=== PATIENT | female | born 1955 | race Caucasian/White ===

== ENCOUNTER 2021-12-04 07:14 | Inpatient (IN) | payer MEDICARE ==
[~2021-12-04] VITALS: Ht 165.1 cm; Wt 125.2 kg
[2021-12-04] MEDS ORDERED: Morphine 2mg Syringe 2 MG/ML SYR IV STA (07:22)
[2021-12-04] MEDS ORDERED: ONDANSETRON HCL INJ 2MG/ML 2ML 2 MG/ML VIAL IV STA (07:22)
[2021-12-04] MEDS ORDERED: SODIUM CHLORIDE 0.9% 1000ML 1,000 ML IV STA (07:22)
[2021-12-04] MEDS ORDERED: KETOROLAC TROMETHAMINE 30 MG/ML VIAL IV STA (07:22)
[2021-12-04 07:34] LABS: BASOPHILS % 0.2 % (0.0-1.0); EOSINOPHILS # (AUTO) 0.1 (0.0-0.4); HEMOGLOBIN 14.8 g/dL (12.0-16.0); LYMPHOCYTES # (AUTO) 1.5 (1.0-3.2); LYMPHOCYTES % 16.7 % (18.0-39.1); MEAN CORPUSCULAR HEMOGLOBIN 28.6 pg (28-32); MEAN CORPUSCULAR HGB CONC 32.9 g/dL (31-35); MONOCYTES # (AUTO) 0.4 (0.2-0.8); MONOCYTES % 4.9 % (4.4-11.3); NEUTROPHILS # (AUTO) 6.8 (2.1-6.9); NEUTROPHILS % 76.9 % (38.7-80.0); PLATELET COUNT 133 x10e3/uL (140-360); RED BLOOD COUNT 5.17 x10e6/uL (3.6-5.1); RED CELL DISTRIBUTION WIDTH 14.1 % (11.7-14.4)
[2021-12-04 07:43] LABS: INR 1.03; PROTHROMBIN TIME 14.4 seconds (11.9-14.5)
[2021-12-04 07:54] LABS: ANION GAP 19.2 mmol/L (8-16); CALCIUM 9.9 mg/dL (8.4-10.2); CREATININE, SERUM 0.85 mg/dL (0.57-1.11); MAGNESIUM 1.6 MG/DL (1.3-2.1); POTASSIUM 4.2 mmol/L (3.5-5.1)
[2021-12-04 08:00] LABS: CREATINE KINASE MB 0.5 ng/mL (0-5.0)
[2021-12-04 08:05] LABS: CLARITY,URINE TURBID (CLEAR); COLOR,URINE YELLOW (YELLOW); KETONES,URINE 2+ (NEGATIVE); LEUKOCYTE ESTERASE ,URINE SMALL (NEGATIVE); NITRITE,URINE POSITIVE (NEGATIVE); PROTEIN,URINE DIPSTICK 2+ (NEGATIVE); URINE UROBILINOGEN 0.2 mg/dL (0.2 - 1)
[2021-12-04 08:07] LABS: BACTERIA,URINE MODERATE /HPF; EPITHELIAL CELLS,URINE FEW /LPF; RBC,URINE >50 /HPF (0-5); WBC,URINE (MAN) >50 /HPF (0-5)
[2021-12-04] MEDS ORDERED: CEFTRIAXONE 1 GM in SODIUM CHLORIDE 0.9% 50ML 50 ML IV ONE (08:15)
[2021-12-04] MEDS ORDERED: DIPHENHYDRAMINE HCL INJ 50 MG/ML VIAL IV ONE (08:30)
[2021-12-04] MEDS ORDERED: METOCLOPRAMIDE HCL 10 MG/2ML VIAL IV ONE (08:30)
[2021-12-04] MEDS ORDERED: METOCLOPRAMIDE HCL 10 MG/2ML VIAL IV PRN (09:45)
[2021-12-04] MEDS ORDERED: Morphine 2mg Syringe 2 MG/ML SYR IV PRN (09:45)
[2021-12-04] MEDS ORDERED: ONDANSETRON HCL INJ 2MG/ML 2ML 2 MG/ML VIAL IV PRN (09:45)
[2021-12-04] MEDS ORDERED: DIPHENHYDRAMINE HCL INJ 50 MG/ML VIAL IV PRN (09:45)
[2021-12-04] MEDS: PIPERACILLIN/TAZOBACTAM 3.375 GM in SODIUM CHLORIDE 0.9% 50ML 50 ML IV SCH ×3 (10:29→21:33)
[2021-12-04] MEDS ORDERED: Vancomycin IV 1 GM in SODIUM CHLORIDE 0.9% 250ML 250 ML IV ONE (10:30)
[2021-12-04 11:40] VITALS: BP 136/59
[2021-12-04] MEDS: SODIUM CHLORIDE 0.9% 1000ML 1,000 ML IV SCH ×2 (12:38→19:45)
[2021-12-04] MEDS ORDERED: DEXTROSE 50% SYRINGE 50 ML IV PRN (14:45)
[2021-12-04 16:00] VITALS: BP 132/51
[2021-12-04] MEDS: INSULIN REGULAR, HUMAN 100 UNIT/1 ML SQ SCH ×2 (16:50→20:42)
[2021-12-04] MEDS: FAMOTIDINE 20 MG TAB PO SCH (16:51)
[2021-12-04] MEDS: TAMSULOSIN HCL 0.4 MG CAP PO SCH (16:51)
[2021-12-04 19:16] LABS: CREATINE KINASE MB 0.3 ng/mL (0-5.0)
[2021-12-04 20:00] VITALS: BP 106/39
[2021-12-04 21:00] VITALS: BP 106/39
[2021-12-05] VITALS (8 sets, daily range): BP systolic 106–126; BP diastolic 49–59
[2021-12-05] MEDS: PIPERACILLIN/TAZOBACTAM 3.375 GM in SODIUM CHLORIDE 0.9% 50ML 50 ML IV SCH ×4 (04:20→22:00)
[2021-12-05] MEDS: SODIUM CHLORIDE 0.9% 1000ML 1,000 ML IV SCH ×3 (05:45→22:56)
[2021-12-05] MEDS: FAMOTIDINE 20 MG TAB PO SCH (08:29)
[2021-12-05] MEDS: TAMSULOSIN HCL 0.4 MG CAP PO SCH ×2 (08:29→16:03)
[2021-12-05] MEDS: INSULIN REGULAR, HUMAN 100 UNIT/1 ML SQ SCH ×4 (08:31→21:30)
[2021-12-05 09:12] LABS: BASOPHILS % 0.2 % (0.0-1.0); EOSINOPHILS # (AUTO) 0.1 (0.0-0.4); HEMATOCRIT 38.2 % (34.2-44.1); HEMOGLOBIN 12.6 g/dL (12.0-16.0); LYMPHOCYTES # (AUTO) 1.6 (1.0-3.2); MEAN CORPUSCULAR HEMOGLOBIN 28.6 pg (28-32); MEAN CORPUSCULAR VOLUME 86.6 fL (81-99); MONOCYTES # (AUTO) 0.6 (0.2-0.8); MONOCYTES % 5.8 % (4.4-11.3); NEUTROPHILS # (AUTO) 7.4 (2.1-6.9); NEUTROPHILS % 76.6 % (38.7-80.0); PLATELET COUNT 100 x10e3/uL (140-360); RED BLOOD COUNT 4.41 x10e6/uL (3.6-5.1); RED CELL DISTRIBUTION WIDTH 14.6 % (11.7-14.4)
[2021-12-05 09:25] LABS: ALBUMIN 3.1 g/dL (3.5-5.0); ALBUMIN/GLOBULIN RATIO 0.9 (0.8-2.0); ANION GAP 16.9 mmol/L (8-16); CALCIUM 8.8 mg/dL (8.4-10.2); CREATININE, SERUM 0.79 mg/dL (0.57-1.11); POTASSIUM 3.9 mmol/L (3.5-5.1)
[2021-12-05 09:38] LABS: CREATINE KINASE MB 0.5 ng/mL (0-5.0)
[2021-12-05 09:51] LABS: MAGNESIUM 1.6 MG/DL (1.3-2.1); PHOSPHORUS 3.4 MG/DL (2.3-4.7)
[2021-12-05] MEDS: ACETAMINOPHEN 325 MG TAB PO PRN (17:58)
[2021-12-06] VITALS: BP 137/64
[2021-12-06 04:00] VITALS: BP 159/73
[2021-12-06] MEDS: PIPERACILLIN/TAZOBACTAM 3.375 GM in SODIUM CHLORIDE 0.9% 50ML 50 ML IV SCH ×2 (04:00→10:20)
[2021-12-06] MEDS ORDERED: omeprazole PO (05:00)
[2021-12-06 05:25] LABS: BASOPHILS % 0.3 % (0.0-1.0); EOSINOPHILS # (AUTO) 0.2 (0.0-0.4); EOSINOPHILS % 2.7 % (0.0-6.0); HEMATOCRIT 37.5 % (34.2-44.1); HEMOGLOBIN 12.2 g/dL (12.0-16.0); LYMPHOCYTES # (AUTO) 1.3 (1.0-3.2); LYMPHOCYTES % 21.7 % (18.0-39.1); MEAN CORPUSCULAR HEMOGLOBIN 28.6 pg (28-32); MEAN CORPUSCULAR HGB CONC 32.5 g/dL (31-35); MONOCYTES # (AUTO) 0.6 (0.2-0.8); MONOCYTES % 9.5 % (4.4-11.3); NEUTROPHILS # (AUTO) 3.9 (2.1-6.9); NEUTROPHILS % 65.6 % (38.7-80.0); PLATELET COUNT 95 x10e3/uL (140-360); RED BLOOD COUNT 4.26 x10e6/uL (3.6-5.1); RED CELL DISTRIBUTION WIDTH 14.6 % (11.7-14.4)
[2021-12-06 05:43] LABS: ALBUMIN/GLOBULIN RATIO 0.9 (0.8-2.0); ANION GAP 11.7 mmol/L (8-16); CALCIUM 8.3 mg/dL (8.4-10.2); CREATININE, SERUM 0.66 mg/dL (0.57-1.11); POTASSIUM 3.7 mmol/L (3.5-5.1)
[2021-12-06] MEDS: INSULIN REGULAR, HUMAN 100 UNIT/1 ML SQ SCH (07:30)
[2021-12-06 08:00] VITALS: BP 159/73
[2021-12-06 08:32] VITALS: BP 155/62
[2021-12-06] MEDS: FAMOTIDINE 20 MG TAB PO SCH (09:12)
[2021-12-06] MEDS: TAMSULOSIN HCL 0.4 MG CAP PO SCH (09:12)
[2021-12-06] MEDS: ACETAMINOPHEN 325 MG TAB PO PRN (10:21)
[2021-12-06] MEDS ORDERED: ONDANSETRON HCL 4 MG ORAL DISINTEGRATING TAB PO PRN (11:30)
[2021-12-06 12:14] VITALS: BP 154/70
[2021-12-06] MEDS ORDERED: METOCLOPRAMIDE HCL 10 MG TAB PO PRN (13:00)
== END 2021-12-06 13:10 | disposition home or self-care (01) | DRG 690 ==
LOC: ER 07:29 → ERHOLD 09:48 → MED/SURG2 11:27
PROVIDERS: ADMIT Internal Medicine; ATTEND Internal Medicine
DX: N13.6 Pyonephrosis (principal); Z68.42 Body mass index [BMI] 45.0-49.9, adult; N12 Tubulo-interstitial nephritis, not specified as acute or chronic; R31.29 Other microscopic hematuria; E66.01 Morbid (severe) obesity due to excess calories; R31.9 Hematuria, unspecified; D69.6 Thrombocytopenia, unspecified; N39.46 Mixed incontinence; I25.10 Atherosclerotic heart disease of native coronary artery without angina pectoris; Z95.5 Presence of coronary angioplasty implant and graft; Z20.822 Contact with and (suspected) exposure to COVID-19
CPT/HCPCS: 36415; 71045; 74176; 80053; 81001; 82550; 82553; 82948; 83036; 83690; 83735; 83880; 84100; 84484; 85025; 85610; 85730; 87086; 87186; 93005; 96372; 99284; J0696; J1200; J1817; J1885; J2270; J2405; J2543; J2765; J3370; J7030; J7050; U0002

== ENCOUNTER 2021-12-30 17:36 | Inpatient (IN) | payer MEDICARE ==
[~2021-12-30] VITALS: Ht 165.1 cm; Wt 125.2 kg
[~2021-12-30 17:36] MED LIST: ASPIRIN81 MG PO; BUSPIRONE HCL10 MG PO; FLUOXETINE HCL20 M1 PO; FUROSEMIDE40 MG PO; GABAPENTIN300 MG PO; GLIMEPIRIDE2 MG PO; HYDROXYZINE HCL25 MG PO; INDERAL10 MG PO; LIPITOR10 MG PO; LOSARTAN POTAS100 MG PO; METFORMIN HCL500 MG PO; METOPROLOL SUCC50 MG PO; TRULICITY1.5 MG/0.5 SC; omeprazole PO
[2021-12-30] MEDS ORDERED: ONDANSETRON HCL INJ 2MG/ML 2ML 2 MG/ML VIAL IV STA (17:42)
[2021-12-30] MEDS ORDERED: SODIUM CHLORIDE 0.9% 1000ML 1,000 ML IV ONE (17:45)
[2021-12-30] MEDS ORDERED: DICYCLOMINE HCL 20 MG/2 ML VIAL IM ONE (17:45)
[2021-12-30 18:33] LABS: BASOPHILS % 0.1 % (0.0-1.0); HEMATOCRIT 38.9 % (34.2-44.1); HEMOGLOBIN 13.1 g/dL (12.0-16.0); LYMPHOCYTES # (AUTO) 0.9 (1.0-3.2); LYMPHOCYTES % 9.2 % (18.0-39.1); MEAN CORPUSCULAR HEMOGLOBIN 28.6 pg (28-32); MEAN CORPUSCULAR HGB CONC 33.7 g/dL (31-35); MEAN CORPUSCULAR VOLUME 84.9 fL (81-99); MONOCYTES # (AUTO) 0.9 (0.2-0.8); MONOCYTES % 9.2 % (4.4-11.3); NEUTROPHILS # (AUTO) 7.5 (2.1-6.9); PLATELET COUNT 124 x10e3/uL (140-360); RED BLOOD COUNT 4.58 x10e6/uL (3.6-5.1); RED CELL DISTRIBUTION WIDTH 14.6 % (11.7-14.4)
[2021-12-30 18:53] LABS: ALBUMIN 3.2 g/dL (3.5-5.0); ALBUMIN/GLOBULIN RATIO 0.8 (0.8-2.0); AMYLASE 29 U/L (25-125); ANION GAP 13.8 mmol/L (8-16); CALCIUM 9.2 mg/dL (8.4-10.2); CREATININE, SERUM 1.03 mg/dL (0.57-1.11); LIPASE 13 U/L (8-78); POTASSIUM 3.8 mmol/L (3.5-5.1)
[2021-12-30 19:28] LABS: CREATINE KINASE MB 0.4 ng/mL (0-5.0)
[2021-12-30 20:16] LABS: CLARITY,URINE SL CLOUDY (CLEAR); COLOR,URINE AMBER (YELLOW); KETONES,URINE TRACE (NEGATIVE); LEUKOCYTE ESTERASE ,URINE MODERATE (NEGATIVE); NITRITE,URINE NEGATIVE (NEGATIVE); PROTEIN,URINE DIPSTICK TRACE (NEGATIVE); URINE UROBILINOGEN 0.2 mg/dL (0.2 - 1)
[2021-12-30 20:24] LABS: BACTERIA,URINE MANY /HPF; RBC,URINE 0-5 /HPF (0-5)
[2021-12-30] MEDS: CEFTRIAXONE 1 GM in SODIUM CHLORIDE 0.9% 50ML 50 ML IV SCH (21:25)
[2021-12-30] MEDS ORDERED: ONDANSETRON HCL INJ 2MG/ML 2ML 2 MG/ML VIAL IV PRN (21:30)
[2021-12-30] MEDS ORDERED: Morphine 2mg Syringe 2 MG/ML SYR IV PRN (21:30)
[2021-12-30] MEDS ORDERED: CEFTRIAXONE 1 GM VIAL ONE (21:30)
[2021-12-30] MEDS ORDERED: DEXTROSE 50% SYRINGE 50 ML IV PRN (21:30)
[2021-12-30] MEDS ORDERED: SODIUM CHLORIDE 0.9% 50ML 50 ML ONE (21:30)
[2021-12-30] MEDS: SODIUM CHLORIDE 0.9% 1000ML 1,000 ML IV SCH (22:12)
[2021-12-31] VITALS (17 sets, daily range): BP systolic 97–123; BP diastolic 50–77
[2021-12-31] MEDS ORDERED: ACETAMINOPHEN 1000 MG/100 ML IV STA (01:14)
[2021-12-31 05:50] LABS: BASOPHILS % 0.3 % (0.0-1.0); EOSINOPHILS # (AUTO) 0.1 (0.0-0.4); EOSINOPHILS % 0.8 % (0.0-6.0); HEMATOCRIT 37.6 % (34.2-44.1); HEMOGLOBIN 12.3 g/dL (12.0-16.0); LYMPHOCYTES # (AUTO) 0.5 (1.0-3.2); LYMPHOCYTES % 5.6 % (18.0-39.1); MEAN CORPUSCULAR HEMOGLOBIN 28.5 pg (28-32); MEAN CORPUSCULAR HGB CONC 32.7 g/dL (31-35); MEAN CORPUSCULAR VOLUME 87.2 fL (81-99); MONOCYTES # (AUTO) 0.6 (0.2-0.8); MONOCYTES % 6.9 % (4.4-11.3); NEUTROPHILS # (AUTO) 7.4 (2.1-6.9); NEUTROPHILS % 85.5 % (38.7-80.0); PLATELET COUNT 118 x10e3/uL (140-360); RED BLOOD COUNT 4.31 x10e6/uL (3.6-5.1); RED CELL DISTRIBUTION WIDTH 14.8 % (11.7-14.4)
[2021-12-31 06:20] LABS: ALBUMIN 2.9 g/dL (3.5-5.0); ALBUMIN/GLOBULIN RATIO 0.8 (0.8-2.0); ANION GAP 14.6 mmol/L (8-16); CALCIUM 8.5 mg/dL (8.4-10.2); CREATININE, SERUM 1.49 mg/dL (0.57-1.11); POTASSIUM 3.6 mmol/L (3.5-5.1)
[2021-12-31] MEDS: SODIUM CHLORIDE 0.9% 1000ML 1,000 ML IV SCH ×4 (06:24→23:05)
[2021-12-31] MEDS ORDERED: IOPAMIDOL 300MG/ML 50ML INFUS..BTL IV ONE (06:54)
[2021-12-31] MEDS ORDERED: B&O 60MG R/S 60 MG SUPP PR ONE (06:54)
[2021-12-31] MEDS: INSULIN REGULAR, HUMAN 100 UNIT/1 ML SQ SCH ×4 (07:30→20:11)
[2021-12-31 07:45] LABS: CREATINE KINASE MB 3.1 ng/mL (0-5.0)
[2021-12-31] MEDS: CEFTRIAXONE 1 GM in SODIUM CHLORIDE 0.9% 50ML 50 ML IV SCH (09:00)
[2021-12-31] MEDS ORDERED: SODIUM CHLORIDE 0.9% 1000ML 1,000 ML IV SCH ×2 (09:15→10:45)
[2021-12-31] MEDS ORDERED: HEPARIN SOD (PORCINE) 1000 UNIT/ML 30ML ONE (09:19)
[2021-12-31] MEDS ORDERED: LIDOCAINE HCL 2% LOCAL 20 ML VIAL ONE (09:19)
[2021-12-31] MEDS ORDERED: HEPARIN SOD/SOD CHLORIDE 2,000 ML ONE (09:19)
[2021-12-31] MEDS ORDERED: NITROGLYCERIN/D5W 200 MCG/ML 250 ML ONE (09:20)
[2021-12-31] MEDS ORDERED: IOPAMIDOL 370 MG/ML 200 ML INFUS..BTL INJ ONE ×2 (09:20→10:23)
[2021-12-31] MEDS ORDERED: VERAPAMIL HCL 2.5 MG/ML 2 ML VIAL ONE (09:21)
[2021-12-31] MEDS ORDERED: MIDAZOLAM HCL 2 MG/2 ML VIAL ONE (09:40)
[2021-12-31] MEDS ORDERED: FENTANYL CITRATE/PF 100MCG/2 ML INJ ONE (09:40)
[2021-12-31] MEDS ORDERED: ADENOSINE 3MG/1ML 30ML VIAL ONE (10:19)
[2021-12-31] MEDS ORDERED: SODIUM CHLORIDE 0.9% 50ML 50 ML ONE (10:20)
[2021-12-31 16:21] LABS: CREATINE KINASE MB 3.2 ng/mL (0-5.0)
[2021-12-31] MEDS: ACETAMINOPHEN 325 MG TAB PO PRN ×2 (18:37→19:26)
[2021-12-31] MEDS ORDERED: HYDROXYZINE HCL 25 MG TAB PO PRN (20:45)
[2021-12-31] MEDS ORDERED: HYDRALAZINE HCL 20 MG/ML VIAL IV PRN (22:15)
[2022-01-01] VITALS: BP 110/55
[2022-01-01 04:00] VITALS: BP 121/51
[2022-01-01 04:57] LABS: BASOPHILS % 0.3 % (0.0-1.0); EOSINOPHILS # (AUTO) 0.1 (0.0-0.4); EOSINOPHILS % 0.9 % (0.0-6.0); HEMATOCRIT 36.1 % (34.2-44.1); HEMOGLOBIN 11.8 g/dL (12.0-16.0); LYMPHOCYTES # (AUTO) 0.7 (1.0-3.2); LYMPHOCYTES % 11.2 % (18.0-39.1); MEAN CORPUSCULAR HEMOGLOBIN 28.4 pg (28-32); MEAN CORPUSCULAR HGB CONC 32.7 g/dL (31-35); MEAN CORPUSCULAR VOLUME 86.8 fL (81-99); MONOCYTES # (AUTO) 0.7 (0.2-0.8); MONOCYTES % 10.6 % (4.4-11.3); NEUTROPHILS # (AUTO) 4.9 (2.1-6.9); NEUTROPHILS % 76.5 % (38.7-80.0); PLATELET COUNT 95 x10e3/uL (140-360); RED BLOOD COUNT 4.16 x10e6/uL (3.6-5.1); RED CELL DISTRIBUTION WIDTH 15.1 % (11.7-14.4)
[2022-01-01 05:17] LABS: ALBUMIN 2.6 g/dL (3.5-5.0); ALBUMIN/GLOBULIN RATIO 0.7 (0.8-2.0); ANION GAP 11.5 mmol/L (8-16); CALCIUM 8.4 mg/dL (8.4-10.2); CREATININE, SERUM 0.75 mg/dL (0.57-1.11); POTASSIUM 3.5 mmol/L (3.5-5.1)
[2022-01-01] MEDS: INSULIN REGULAR, HUMAN 100 UNIT/1 ML SQ SCH ×2 (07:30→11:30)
[2022-01-01] MEDS: SODIUM CHLORIDE 0.9% 1000ML 1,000 ML IV SCH (07:33)
[2022-01-01 07:59] VITALS: BP 118/60
[2022-01-01 08:00] VITALS: BP 118/60
[2022-01-01] MEDS ORDERED: METOPROLOL SUCCINATE 50 MG TAB XL PO SCH (09:00)
[2022-01-01] MEDS ORDERED: BUSPIRONE HCL 10 MG TABLET PO SCH (09:00)
[2022-01-01] MEDS ORDERED: GLIMEPIRIDE 2 MG TAB PO SCH (09:00)
[2022-01-01] MEDS ORDERED: FUROSEMIDE 20 MG TAB PO SCH (09:00)
[2022-01-01] MEDS ORDERED: ASPIRIN 81 MG CHEW TAB PO SCH (09:00)
[2022-01-01] MEDS ORDERED: FLUOXETINE HCL 20 MG CAP PO SCH (09:00)
[2022-01-01] MEDS ORDERED: GABAPENTIN 300 MG CAP PO SCH (09:00)
[2022-01-01] MEDS: CEFTRIAXONE 1 GM in SODIUM CHLORIDE 0.9% 50ML 50 ML IV SCH (09:13)
[2022-01-01 12:19] VITALS: BP 125/64
[2022-01-01] MEDS ORDERED: LOSARTAN POTASSIUM 100 MG TAB PO SCH (21:00)
[2022-01-01] MEDS ORDERED: ATORVASTATIN 10 MG TAB PO SCH (21:00)
== END 2022-01-01 13:30 | disposition home or self-care (01) | DRG 872 ==
LOC: ER 17:41 → ERHOLD 21:33 → MED/SURG 12-31 00:16 → OBSVTOIN 12-31 16:35
PROVIDERS: ADMIT Internal Medicine; ATTEND Internal Medicine
PROC: 4A023N7 Measurement of Cardiac Sampling and Pressure, Left Heart, Percutaneous Approach (ICD-10-PCS; principal; 2021-12-31)
PROC: B2111ZZ Fluoroscopy of Multiple Coronary Arteries using Low Osmolar Contrast (ICD-10-PCS; 2021-12-31)
PROC: B2151ZZ Fluoroscopy of Left Heart using Low Osmolar Contrast (ICD-10-PCS; 2021-12-31)
PROC: 4A033BC Measurement of Arterial Pressure, Coronary, Percutaneous Approach (ICD-10-PCS; 2021-12-31)
DX: A41.9 Sepsis, unspecified organism (principal); N13.6 Pyonephrosis; N17.9 Acute kidney failure, unspecified; Z68.42 Body mass index [BMI] 45.0-49.9, adult; I5A Non-ischemic myocardial injury (non-traumatic); R65.20 Severe sepsis without septic shock; I25.10 Atherosclerotic heart disease of native coronary artery without angina pectoris; Z98.84 Bariatric surgery status; Z82.49 Family history of ischemic heart disease and other diseases of the circulatory system; K80.80 Other cholelithiasis without obstruction; E78.5 Hyperlipidemia, unspecified; G25.81 Restless legs syndrome; F32.A Depression, unspecified; F41.9 Anxiety disorder, unspecified; E66.01 Morbid (severe) obesity due to excess calories; Z95.5 Presence of coronary angioplasty implant and graft; R26.81 Unsteadiness on feet; G47.30 Sleep apnea, unspecified; Z83.3 Family history of diabetes mellitus; Z81.1 Family history of alcohol abuse and dependence; M17.0 Bilateral primary osteoarthritis of knee; B96.4 Proteus (mirabilis) (morganii) as the cause of diseases classified elsewhere; E11.22 Type 2 diabetes mellitus with diabetic chronic kidney disease; I12.9 Hypertensive chronic kidney disease with stage 1 through stage 4 chronic kidney disease, or unspecified chronic kidney disease; N18.9 Chronic kidney disease, unspecified; N39.46 Mixed incontinence; D64.9 Anemia, unspecified; Z20.822 Contact with and (suspected) exposure to COVID-19; Z79.82 Long term (current) use of aspirin; Z79.84 Long term (current) use of oral hypoglycemic drugs
CPT/HCPCS: 36415; 71045; 74181; 76705; 80053; 81001; 82150; 82550; 82553; 82948; 83690; 84484; 85025; 87040; 87086; 87186; 93005; 94799; 99284; G0378; J0153; J0500; J0696; J1644; J1817; J2001; J2250; J2405; J3010; J3410; J7030; Q9967; U0002

== ENCOUNTER 2022-01-28 06:50 | Observation (INO) | payer MEDICARE ==
[2022-01-26 12:35] LABS: BASOPHILS % 0.9 % (0.0-1.0); EOSINOPHILS # (AUTO) 0.3 (0.0-0.4); EOSINOPHILS % 6.1 % (0.0-6.0); HEMATOCRIT 39.2 % (34.2-44.1); HEMOGLOBIN 12.5 g/dL (12.0-16.0); LYMPHOCYTES # (AUTO) 1.9 (1.0-3.2); LYMPHOCYTES % 45.4 % (18.0-39.1); MEAN CORPUSCULAR HEMOGLOBIN 28.5 pg (28-32); MEAN CORPUSCULAR HGB CONC 31.9 g/dL (31-35); MEAN CORPUSCULAR VOLUME 89.3 fL (81-99); MONOCYTES # (AUTO) 0.4 (0.2-0.8); MONOCYTES % 8.9 % (4.4-11.3); NEUTROPHILS # (AUTO) 1.6 (2.1-6.9); NEUTROPHILS % 38.5 % (38.7-80.0); PLATELET COUNT 153 x10e3/uL (140-360); RED BLOOD COUNT 4.39 x10e6/uL (3.6-5.1); RED CELL DISTRIBUTION WIDTH 14.7 % (11.7-14.4)
[2022-01-26 12:52] LABS: ANION GAP 14.2 mmol/L (8-16); CALCIUM 9.5 mg/dL (8.4-10.2); CREATININE, SERUM 0.76 mg/dL (0.57-1.11); POTASSIUM 4.2 mmol/L (3.5-5.1)
[~2022-01-28] VITALS: Ht 165.1 cm; Wt 122.0 kg
[~2022-01-28 06:50] MED LIST changes: +OMEPRAZOLE20 MG PO; +OMEPRAZOLE40 MG PO
[2022-01-28] MEDS ORDERED: GENTAMICIN 80MG/NS 100 ML 200 ML IV ONE (07:22)
[2022-01-28] MEDS ORDERED: CEFTRIAXONE 1 GM VIAL ONE (07:22)
[2022-01-28] MEDS ORDERED: INSULIN REGULAR, HUMAN 100 UNIT/1 ML ONE (07:51)
[2022-01-28] MEDS ORDERED: IOHEXOL 300 MG/ML 30ML INFUS..BTL ONE (09:07)
[2022-01-28] MEDS ORDERED: BELLADONNA/OPIUM 30 MG SUPP RC ONE (09:07)
[2022-01-28] MEDS ORDERED: PHENAZOPYRIDINE HCL 100 MG TAB ONE (11:56)
[2022-01-28 12:45] VITALS: BP 153/68
[2022-01-28] MEDS ORDERED: MIDAZOLAM HCL 2 MG/2 ML VIAL ONE (13:16)
[2022-01-28] MEDS ORDERED: FENTANYL CITRATE/PF 100MCG/2 ML INJ ONE (13:16)
[2022-01-28 13:23] VITALS: BP 153/68
[2022-01-28 13:27] VITALS: BP 153/68
[2022-01-28] MEDS ORDERED: ONDANSETRON HCL INJ 2MG/ML 2ML 2 MG/ML VIAL IV PRN (13:45)
[2022-01-28] MEDS ORDERED: DEXTROSE 50% SYRINGE 50 ML IV PRN (13:45)
[2022-01-28] MEDS ORDERED: ACETAMINOPHEN 325 MG TAB PO PRN (13:45)
[2022-01-28] MEDS ORDERED: TYLENOL 3 PO (14:05)
[2022-01-28] MEDS ORDERED: INSULIN REGULAR, HUMAN 100 UNIT/1 ML SQ ONE (15:00)
[2022-01-28 16:24] VITALS: BP 154/75
[2022-01-28] MEDS ORDERED: POVIDONE IODINE 0.05% 0.05 % ML PO ONE (16:29)
[2022-01-28] MEDS ORDERED: DEXAMETHASONE SOD PHOS INJ 4 MG/ML SDV ONE (16:29)
[2022-01-28] MEDS ORDERED: LIDOCAINE HCL 2% LOCAL INJ 5 ML SDV VIAL INJ ONE (16:29)
[2022-01-28] MEDS ORDERED: PROPOFOL IV EMULSION 10 MG/ML 20 ML VIAL ONE (16:29)
[2022-01-28] MEDS ORDERED: EPHEDRINE SULFATE INJ 50 MG/ML VIAL ONE (16:29)
[2022-01-28] MEDS ORDERED: SEVOFLURANE INHAL SOLN 250 ML PEN BTL ONE (16:29)
[2022-01-28] MEDS ORDERED: ONDANSETRON HCL INJ 2MG/ML 2ML 2 MG/ML VIAL ONE (16:29)
== END 2022-01-28 17:00 | disposition home or self-care (01) ==
LOC: OR 06:50 → PACU V 11:00 → MED/SURG 12:31
PROVIDERS: ADMIT Internal Medicine; ATTEND Internal Medicine
DX: N13.6 Pyonephrosis (principal); N36.41 Hypermobility of urethra; N81.4 Uterovaginal prolapse, unspecified; N95.2 Postmenopausal atrophic vaginitis; I10 Essential (primary) hypertension; E11.42 Type 2 diabetes mellitus with diabetic polyneuropathy; E78.5 Hyperlipidemia, unspecified; I25.10 Atherosclerotic heart disease of native coronary artery without angina pectoris; G47.33 Obstructive sleep apnea (adult) (pediatric); E66.01 Morbid (severe) obesity due to excess calories; Z79.82 Long term (current) use of aspirin; Z79.4 Long term (current) use of insulin; Z79.84 Long term (current) use of oral hypoglycemic drugs; K21.9 Gastro-esophageal reflux disease without esophagitis; Z82.49 Family history of ischemic heart disease and other diseases of the circulatory system; Z83.3 Family history of diabetes mellitus; Z95.5 Presence of coronary angioplasty implant and graft; Z68.41 Body mass index [BMI] 40.0-44.9, adult; Z20.822 Contact with and (suspected) exposure to COVID-19
CPT/HCPCS: 36415 ×2; 50590; 52332; 74018; 80048; 82948; 84550; 85025; C1758; C1769; C2617; G0378; J0696; J1100; J1580; J1817; J2001; J2250; J2405; J2704; J3010; Q9967; U0002; 74420

== ENCOUNTER → 2022-06-08 | Day surgery (SDC) | payer MEDICARE ==
[2022-06-06 08:20] LABS: BASOPHILS % 0.4 % (0.0-1.0); EOSINOPHILS # (AUTO) 0.3 (0.0-0.4); EOSINOPHILS % 4.4 % (0.0-6.0); HEMATOCRIT 46.5 % (34.2-44.1); HEMOGLOBIN 14.5 g/dL (12.0-16.0); LYMPHOCYTES # (AUTO) 2.3 (1.0-3.2); LYMPHOCYTES % 40.3 % (18.0-39.1); MEAN CORPUSCULAR HEMOGLOBIN 28.1 pg (28-32); MEAN CORPUSCULAR HGB CONC 31.2 g/dL (31-35); MEAN CORPUSCULAR VOLUME 90.1 fL (81-99); MONOCYTES # (AUTO) 0.6 (0.2-0.8); MONOCYTES % 9.7 % (4.4-11.3); NEUTROPHILS # (AUTO) 2.6 (2.1-6.9); PLATELET COUNT 144 x10e3/uL (140-360); RED BLOOD COUNT 5.16 x10e6/uL (3.6-5.1); RED CELL DISTRIBUTION WIDTH 14.6 % (11.7-14.4)
[2022-06-06 08:50] LABS: ANION GAP 16.4 mmol/L (8-16); CALCIUM 9.7 mg/dL (8.4-10.2); CREATININE, SERUM 0.76 mg/dL (0.57-1.11); POTASSIUM 4.4 mmol/L (3.5-5.1)
[~2022-06-08] MED LIST changes: +BELLADONNA/OPIUM 30 MG SUPP RC ONE; +CEFTRIAXONE 1 GM VIAL ONE; +DEXAMETHASONE SOD PHOS INJ 4 MG/ML SDV ONE; +FENTANYL CITRATE/PF 100MCG/2 ML INJ ONE; +FLUCONAZOLE 200 MG/100 ML 100 ML IV ONE; +FLUCONAZOLE 200 MG/100 ML IV ONE; +GENTAMICIN 80MG/NS 100 ML 200 ML IV ONE; +IOPAMIDOL 610MG/1ML 300 MG/ML VIAL IV ONE; +LIDOCAINE HCL 2% LOCAL INJ 5 ML SDV VIAL INJ ONE; +MIDAZOLAM HCL 2 MG/2 ML VIAL ONE; +ONDANSETRON HCL INJ 2MG/ML 2ML 2 MG/ML VIAL ONE; +POVIDONE IODINE 0.05% 0.05 % ML PO ONE; +PROPOFOL IV EMULSION 10 MG/ML 20 ML VIAL ONE; +SEVOFLURANE INHAL SOLN 250 ML PEN BTL ONE; +SODIUM CHLORIDE 0.9% 1000ML 1,000 ML ONE; +TYLENOL 3 PO
[2022-06-08 10:50] VITALS: BP 135/65
== END | disposition home or self-care (01) ==
LOC: OR 07:01
PROVIDERS: ATTEND Urology
DX: N20.0 Calculus of kidney (principal); N13.30 Unspecified hydronephrosis; Z46.6 Encounter for fitting and adjustment of urinary device; N81.10 Cystocele, unspecified; N81.6 Rectocele; N36.41 Hypermobility of urethra; N95.2 Postmenopausal atrophic vaginitis; N28.89 Other specified disorders of kidney and ureter; N81.89 Other female genital prolapse; G47.33 Obstructive sleep apnea (adult) (pediatric); E11.9 Type 2 diabetes mellitus without complications; I10 Essential (primary) hypertension; I25.10 Atherosclerotic heart disease of native coronary artery without angina pectoris; E78.5 Hyperlipidemia, unspecified; K44.9 Diaphragmatic hernia without obstruction or gangrene; G25.81 Restless legs syndrome; F41.9 Anxiety disorder, unspecified; Z01.810 Encounter for preprocedural cardiovascular examination; Z01.812 Encounter for preprocedural laboratory examination; Z01.818 Encounter for other preprocedural examination; Z20.822 Contact with and (suspected) exposure to COVID-19; Z79.82 Long term (current) use of aspirin; Z79.84 Long term (current) use of oral hypoglycemic drugs; Z79.899 Other long term (current) drug therapy; Z68.41 Body mass index [BMI] 40.0-44.9, adult
CPT/HCPCS: 0223U; 36415; 52332; 52352; 74018; 74420; 80048; 84550; 85025; 87086; 87186; 88300; 93005; C1766; C1769; C2617; J0696; J1100; J1450; J1580; J2001; J2250; J2405; J2704; J3010; J7030; Q9967

== ENCOUNTER → 2024-02-02 | Outpatient (REF) | payer MEDICARE ==
[~2024-02-02] MED LIST changes: -BELLADONNA/OPIUM 30 MG SUPP RC ONE; -CEFTRIAXONE 1 GM VIAL ONE; -DEXAMETHASONE SOD PHOS INJ 4 MG/ML SDV ONE; -FENTANYL CITRATE/PF 100MCG/2 ML INJ ONE; -FLUCONAZOLE 200 MG/100 ML 100 ML IV ONE; -FLUCONAZOLE 200 MG/100 ML IV ONE; -GENTAMICIN 80MG/NS 100 ML 200 ML IV ONE; +IOPAMIDOL 370 MG/ML 100 ML INFUS..BTL INJ ONE; -IOPAMIDOL 610MG/1ML 300 MG/ML VIAL IV ONE; -LIDOCAINE HCL 2% LOCAL INJ 5 ML SDV VIAL INJ ONE; -MIDAZOLAM HCL 2 MG/2 ML VIAL ONE; -ONDANSETRON HCL INJ 2MG/ML 2ML 2 MG/ML VIAL ONE; -POVIDONE IODINE 0.05% 0.05 % ML PO ONE; -PROPOFOL IV EMULSION 10 MG/ML 20 ML VIAL ONE; -SEVOFLURANE INHAL SOLN 250 ML PEN BTL ONE; -SODIUM CHLORIDE 0.9% 1000ML 1,000 ML ONE; +SODIUM CHLORIDE 0.9% 250ML 250 ML ONE
[2024-02-02 08:25] LABS: CREATININE, SERUM 0.85 mg/dL (0.57-1.11)
== END ==
LOC: CT 07:04
PROVIDERS: ATTEND Urology
DX: R31.21 Asymptomatic microscopic hematuria (principal)
CPT/HCPCS: 36415; 74178; 82565; 84520; J7050; Q9967